=== PATIENT | female | born 1950 | race Caucasian/White ===

== ENCOUNTER → 2022-03-04 | Outpatient (CLI) | payer MEDICARE ==
[~2022-03-04] MED LIST: ALDACTONE25 MG PO; AMLODIPINE BESY10 MG PO; ASPIR 8181 MG PO; ATORVASTATIN CA10 MG PO; BUMEX 1MG TABLET1 MG PO; CARAFATE 1 GM TA1 GM PO; CARVEDILOL25 MG PO; CITALOPRAM HBR10 MG PO; CLARINEX5 MG PO; FERROUS SULFAT325 MG PO; FLONASE 0.05% N16 GM; HYDRALAZINE HCL50 MG PO; HYDROCODON-ACE1 EAC6 PO; ISOSORBIDE MONO60 MG PO; JARDIANCE10 MG PO; K-DUR TAB 20 M20 MEQ PO; LANSOPRAZOLE30 MG PO; LISINOPRIL20 MG PO; LOPRESSOR 50 MG50 MG PO; MONTELUKAST SOD10 MG PO; NITRO-DUR1 EAC3 TOP; NITROSTAT 0.4100 TAB SL; RANEXA500 MG PO; SPIRIVA HANDIH18 MCG INH; VENTOLIN HFA 66.7 GM INH; ZETIA10 MG PO
== END ==
LOC: HEART 5 14:48
DX: J44.9 Chronic obstructive pulmonary disease, unspecified (principal)
CPT/HCPCS: 94060; 94729